=== PATIENT | female | born 1990 | race Caucasian/White ===

== ENCOUNTER 2017-09-07 10:41 | Outpatient (CLI) | payer OTHER ==
[2017-09-07] MEDS ORDERED: CEFAZOLIN 2 GM/50 ML (PMX) 50 ML IV (11:30)
[2017-09-07] MEDS ORDERED: METHYLERGONOVINE 0.2 MG INJ IM (11:30)
[2017-09-07] MEDS ORDERED: MISOPROSTOL 200 MCG TAB PR (11:30)
[2017-09-07] MEDS ORDERED: OXYTOCIN 30 UNITS/LR 500 ML IV ×2 (11:30)
[2017-09-07] MEDS ORDERED: CARBOPROST 250 MCG INJ IM (11:30)
[2017-09-07] MEDS: LACTATED RINGER'S 1,000 ML IV ×2 (12:01→13:17)
[2017-09-07 13:36] LABS: ADD MAN DIFF? NO
[2017-09-07 13:39] LABS: WHITE BLOOD COUNT 13.4 10^3/ul (4.8-10.8)
[2017-09-07 13:39] LABS: BASOPHIL # 0.1 10^3/ul (0.0-0.1); BASOPHILS % 0.4 % (0.0-2.0); EOSINOPHILS # 0.4 10^3/ul (0.0-0.5); EOSINOPHILS % 3.3 % (0.0-7.0); HEMATOCRIT 40.4 % (37.0-47.0); HEMOGLOBIN 13.4 g/dl (12.0-16.0); LYMPHOCYTES # 2.2 10^3/ul (0.8-2.9); LYMPHOCYTES % 16.7 % (15.0-51.0); MEAN CORPUSCULAR HEMOGLOBIN 31.5 pg (29.0-33.0); MEAN CORPUSCULAR HGB CONC 33.2 g/dl (32.0-37.0); MEAN CORPUSCULAR VOLUME 94.8 fl (82.0-101.0); MEAN PLATELET VOLUME 10.8 fl (7.4-10.4); MONOCYTE # 1.3 10^3/ul (0.3-0.9); MONOCYTES % 9.5 % (0.0-11.0); NEUTROPHIL # 9.2 10^3/ul (1.6-7.5); NEUTROPHILS % 68.7 % (39.0-77.0); PLATELET COUNT 306 10^3/UL (140-415); RED BLOOD COUNT 4.26 10^6/ul (4.20-5.40); RED CELL DISTRIBUTION WIDTH 13.6 % (11.5-14.5)
[2017-09-07 13:53] LABS: INR 0.93; PROTIME 12.5 Sec (12.2-14.2)
[2017-09-07 13:54] LABS: PARTIAL THROMBOPLASTIN TIME 27.2 Sec (25.0-35.0)
[2017-09-07 14:25] LABS: ALANINE AMINOTRANSFERASE 27 IU/L (13-69); ALBUMIN 3.3 g/dl (3.3-4.9); ALBUMIN/GLOBULIN RATIO 1.13; ALKALINE PHOSPHATASE 166 IU/L (42-121); ANION GAP 15 (8-16); ASPARTATE AMINO TRANSFERASE 28 IU/L (15-46); BILIRUBIN,INDIRECT 0.4 mg/dl (0-1.1); BILIRUBIN,TOTAL 0.4 mg/dl (0.2-1.3); BLOOD UREA NITROGEN 5 mg/dl (7-20); CALCIUM 9.5 mg/dl (8.4-10.2); CARBON DIOXIDE 22 mmol/L (21-31); CHLORIDE 107 mmol/L (97-110); CREATININE 0.47 mg/dl (0.44-1.00); GLUCOSE 61 mg/dl (70-220); POTASSIUM 3.8 mmol/L (3.5-5.1); SODIUM 140 mmol/L (135-144); TOTAL PROTEIN 6.2 g/dl (6.1-8.1)
[2017-09-07 14:38] LABS: HEPATITIS B SURFACE ANTIGEN NEGATIVE (NEGATIVE)
[2017-09-07 16:06] LABS: AMPHETAMINE/METHAMPHETAMINE Negative (NEGATIVE); BARBITURATES Negative (NEGATIVE); BENZODIAZEPINES Negative (NEGATIVE); CANNABINOIDS Negative (NEGATIVE); COCAINE Negative (NEGATIVE); OPIATES Negative (NEGATIVE)
[2017-09-07 19:37] LABS: RAPID PLASMA REAGIN NONREACTIVE (NR)
== END 2017-09-07 17:15 | disposition home or self-care (01) ==
LOC: L-D 10:41 → OBT 10:45
DX: O26.613 Liver and biliary tract disorders in pregnancy, third trimester (principal); K83.1 Obstruction of bile duct; Z3A.36 36 weeks gestation of pregnancy
CPT/HCPCS: 76818; 80053; 80307; 85025; 85610; 85730; 86592; 86850; 86900; 86901; 86920; 87340

== ENCOUNTER 2018-06-10 11:48 | Emergency (ER) | payer OTHER | END 2018-06-10 13:41 | disposition home or self-care (01) | LOC: FTE 11:48 | DX: K08.89 Other specified disorders of teeth and supporting structures (principal) | CPT/HCPCS: 99284; Z7502 ==

== ENCOUNTER 2018-06-23 09:36 | Emergency (ER) | payer OTHER ==
[2018-06-23 11:23] LABS: URINE BLOOD (Dip) POC Negative (NEGATIVE); URINE GLUCOSE (Dip) POC Negative (NEGATIVE); URINE KETONES (Dip) POC Negative (NEGATIVE); URINE LEUKOCYTE EST (Dip) POC Negative (NEGATIVE); URINE NITRITE (Dip) POC Negative (NEGATIVE); URINE TOTAL PROTEIN POC Negative (NEGATIVE)
[2018-06-23 11:23] LABS: URINE PH (Dip) POC 5.5 (5.0-8.5)
[2018-06-23 11:27] LABS: ADD MAN DIFF? NO
[2018-06-23 11:29] LABS: WHITE BLOOD COUNT 9.6 10^3/ul (4.8-10.8)
[2018-06-23 11:29] LABS: BASOPHILS % 0.4 % (0.0-2.0); EOSINOPHILS # 0.5 10^3/ul (0.0-0.5); HEMATOCRIT 44.9 % (37.0-47.0); HEMOGLOBIN 14.5 g/dl (12.0-16.0); LYMPHOCYTES # 2.5 10^3/ul (0.8-2.9); LYMPHOCYTES % 25.9 % (15.0-51.0); MEAN CORPUSCULAR HEMOGLOBIN 29.5 pg (29.0-33.0); MEAN CORPUSCULAR HGB CONC 32.3 g/dl (32.0-37.0); MEAN CORPUSCULAR VOLUME 91.4 fl (82.0-101.0); MEAN PLATELET VOLUME 9.8 fl (7.4-10.4); MONOCYTE # 0.9 10^3/ul (0.3-0.9); NEUTROPHIL # 5.7 10^3/ul (1.6-7.5); NEUTROPHILS % 59.5 % (39.0-77.0); PLATELET COUNT 331 10^3/UL (140-415); RED BLOOD COUNT 4.91 10^6/ul (4.20-5.40); RED CELL DISTRIBUTION WIDTH 12.4 % (11.5-14.5)
[2018-06-23] MEDS: FAMOTIDINE 20 MG TAB PO (11:42)
[2018-06-23] MEDS: ACETAMINOPHEN 325 MG TAB PO (11:42)
[2018-06-23 11:56] LABS: ALANINE AMINOTRANSFERASE 21 IU/L (13-69); ALBUMIN 4.7 g/dl (3.3-4.9); ALBUMIN/GLOBULIN RATIO 1.51; ALKALINE PHOSPHATASE 114 IU/L (42-121); ANION GAP 16 (8-16); ASPARTATE AMINO TRANSFERASE 23 IU/L (15-46); BILIRUBIN,INDIRECT 0.3 mg/dl (0-1.1); BILIRUBIN,TOTAL 0.3 mg/dl (0.2-1.3); BLOOD UREA NITROGEN 16 mg/dl (7-20); CALCIUM 10.6 mg/dl (8.4-10.2); CARBON DIOXIDE 28 mmol/L (21-31); CHLORIDE 106 mmol/L (97-110); CREATININE 0.56 mg/dl (0.44-1.00); GLUCOSE 97 mg/dl (70-220); LIPASE 41 U/L (23-300); POTASSIUM 4.1 mmol/L (3.5-5.1); SODIUM 146 mmol/L (135-144); TOTAL PROTEIN 7.8 g/dl (6.1-8.1)
== END 2018-06-23 12:22 | disposition home or self-care (01) ==
LOC: FTE 09:36
DX: K29.70 Gastritis, unspecified, without bleeding (principal)
CPT/HCPCS: 76705; 80053; 81003; 81025; 83690; 85025; 99284-25

== ENCOUNTER 2019-05-18 10:20 | Emergency (ER) | payer OTHER | END 2019-05-18 12:47 | disposition home or self-care (01) | LOC: FTE 10:20 | DX: N61.0 Mastitis without abscess (principal) | CPT/HCPCS: 99283; Z7502 ==